=== PATIENT | male | born 1985 ===

== ENCOUNTER 2025-01-25 22:16 | Emergency (ER) | payer MEDICAID ==
[~2025-01-25] VITALS: Ht 180.3 cm; Wt 70.8 kg
[2025-01-25 22:42] VITALS: BP 118/71; PULSE 84; RESP 15; TEMP 97.6; O2SAT 99
== END 2025-01-26 00:35 | disposition left against medical advice (07) ==
LOC: ER 22:16
DX: S91.332A Puncture wound without foreign body, left foot, initial encounter (principal); Z53.21 Procedure and treatment not carried out due to patient leaving prior to being seen by health care provider; X58.XXXA Exposure to other specified factors, initial encounter; Y93.89 Activity, other specified; Y92.89 Other specified places as the place of occurrence of the external cause; Y99.8 Other external cause status

== ENCOUNTER 2025-02-20 16:12 | Emergency (ER) | payer MEDICAID ==
[~2025-02-20] VITALS: Ht 177.8 cm; Wt 85.2 kg
--- NOTE | 2025-02-20 17:16 | Physician Documentation ---
History of Present Illness ~ General Chief Complaint: See Chief Complaint Stated Complaint: LUMP ON HEAD Time Seen by MD: 17:01 History of Present Illness Initial Comments Patient is seen today with complaints of a mass of the scalp just within the dwight rline above his forehead. Patient states it has been present now for over a year states it is sometimes painful and sometimes gets red and swollen. Patient was concerned for cancer. He has no other concern or complaint at this time. Medication Reconciliation Allergies: Coded Allergies: No Known Allergies (Unverified , 02/20/25) Review of Systems Constitutional: Denies: chills, fever, weakness Eyes: Denies: pain, blurred vision ENT: Denies: ear pain, nose pain, throat pain, mouth pain Respiratory: Denies: cough, shortness of breath Cardiovascular: Denies: chest pain, palpitations Gastrointestinal: Denies: abdominal pain, nausea, vomiting Genitourinary: Denies: burning, dysuria Male Genitalia: Denies: penile discharge, testicular pain Neurological: Denies: headache, dizziness Musculoskeletal: Denies: pain, swelling Integumentary: Denies: rash, lesions Allergic/Immunologic: Denies: hives, itching Hematologic/Lymphatic: Denies: no symptoms reported Psychiatric: Denies: depression, anxiety Physical Exam Physical Exam Vital Signs: Temperature: 97.8, Source: Oral, Heart Rate: 84, Respiratory Rate: 18, BP: 153/99, Pulse Oximetry: 97, Weight: 85.200 Oxygen Flow Rate: 0 Physical Exam General: Awake and Alert, no acute distress. HEENT: Patient on exam does have a mobile cyst subdermal just within the hair line above the forehead measuring approximately 2-1/2 cm in diameter does highly mobile and no induration or erythema. I do not appreciate any superficial skin lesion in his area. Conjunctiva pink, Sclera clear, Mucus Membranes moist. Neck: Supple without masses and tenderness. Resp: Unlabored. Lungs clear to auscultation bilaterally. Extremities: No cyanosis,clubbing or edema. Skin: Warm and Dry. Progress Results/Orders Results/Orders Vital Signs 02/20/25 16:16 Temp 97.8 Pulse 84 Resp 18 B/P (MAP) 153/99 Pulse Ox 97 O2 Flow Rate 0 Medical Decision Making Findings Patient is seen today with complaints of a mass of the scalp just within the hairline above his forehead. Patient states it has been present now for over a year states it is sometimes painful and sometimes gets red and swollen. Patient was concerned for cancer. He has no other concern or complaint at this time. Patient likely has sebaceous cyst or epidermal inclusion cyst of the scalp. Patient will follow up with primary care for excision and/or referral to Dermatology for excision and biopsy. Patient will return to ED with any worsening, concerning or changing symptoms. Departure Disposition: 01 HOME / SELF CARE / HOMELESS Impression: Primary Impression: Sebaceous cyst Condition: Stable Discharge Instructions: Epidermoid Cyst Additional Instructions: Patient likely has sebaceous cyst or epidermal inclusion cyst of the scalp. Patient will follow up with primary care for excision and/or referral to Dermatology for excision and biopsy. Patient will return to ED with any worsening, concerning or changing symptoms. Referrals: NO PRIMARY CARE PROVIDER (PCP) Signature Scribe Signature: No scribe Attestation: No scribe KATHY BRADFORD [facility] Feb 20, 2025 17:16
[2025-02-20 17:25] VITALS: BP 156/122; PULSE 96; RESP 18; TEMP 97.8; O2SAT 97
== END 2025-02-20 17:25 | disposition home or self-care (01) ==
LOC: ER 16:12
DX: L72.3 Sebaceous cyst (principal)
CPT/HCPCS: 99282